=== PATIENT | female | born 1970 | race Two or more races ===

== ENCOUNTER 2016-09-22 20:59 | Emergency (ER) | payer OTHER ==
--- NOTE | 2016-09-22 21:01 | ED Physician Chart ---
Chief Complaint/HPI - Patient Information Date Seen:: 09/22/16 Time Seen:: 21:00 Chief Complaint:: anxiety History of Present Illness:: 4-year-old female complains of acute, severe, constant, anxiety that started about 30 minutes prior to arrival to the ER. Has associated left arm numbness. Denies chest pain, Palpitations, nausea, vomiting, diaphoresis, headache, acute visual changes, abdominal pain. Reports that she had an emotional upset and started the symptoms. Historian:: Patient Review:: Nurse's Note Reviewed Review of Systems - Review of Systems Other: Complete system review otherwise unremarkable except as noted in history of present illness. Past Medical History - Past Medical History Past Medical History: No significant medical hx Family History: None Social History: Non Smoker, No Alcohol, No Drug Use, Employed Surgical History: None Psychiatricy History: None Medication: None Family Medical History - Family Member Mother Ethnicity: Hx Family Cancer: No Hx Family Coronary Artery Disease: No Hx Family Congestive Heart Failure: No Hx Family Hypertension: No Hx Family Stroke: No Hx Family Diabetes: No Labs/Radiology/EKG Results - Lab Results Results: Lab Results 09/22/16 09/22/16 09/22/16 Range/Units 21:21 21:21 21:21 WBC 8.3 (4.8-10.8) Th/cmm RBC 4.23 (3.80-5.10) Mil/cmm Hgb 12.8 (11.7-15.5) gm/dL Hct 38.0 (35.0-45.0) % MCV 89.9 (81-100) fl MCH 30.2 (27.0-31.0) pg MCHC Differential 33.6 (28.0-36.0) pg RDW 12.1 (11.5-20.0) % Plt Count 303 (150-400) Th/cmm MPV 7.2 fl PT 9.7 (9.5-11.5) SECONDS INR 0.93 (0.5-1.4) Sodium (136-145) mEq/L Potassium (3.5-5.1) mEq/L Chloride (98-107) mEq/L Carbon Dioxide (21.0-31.0) mEq/L Anion Gap (7.0-16.0) BUN (7-25) mg/dL Creatinine (0.6-1.2) mg/dL Est GFR ( Amer) (>90) ml/min Est GFR (Non-Af Amer) ml/min BUN/Creatinine Ratio Glucose (70-105) mg/dL Calcium (8.6-10.3) mg/dL Total Bilirubin (0.3-1.0) mg/dL AST (13-39) U/L ALT (7-52) U/L Alkaline Phosphatase (34-104) U/L Creatine Kinase 79 (30-223) U/L Troponin I (0.01-0.05) ng/mL Total Protein (6.0-8.3) gm/dL Albumin (3.7-5.3) gm/dL Globulin gm/dL Albumin/Globulin Ratio (1.0-1.8) 09/22/16 09/22/16 Range/Units 21:21 21:21 WBC (4.8-10.8) Th/cmm RBC (3.80-5.10) Mil/cmm Hgb (11.7-15.5) gm/dL Hct (35.0-45.0) % MCV (81-100) fl MCH (27.0-31.0) pg MCHC Differential (28.0-36.0) pg RDW (11.5-20.0) % Plt Count (150-400) Th/cmm MPV fl PT (9.5-11.5) SECONDS INR (0.5-1.4) Sodium 140 (136-145) mEq/L Potassium 3.4 L (3.5-5.1) mEq/L Chloride 102 (98-107) mEq/L Carbon Dioxide 26.6 (21.0-31.0) mEq/L Anion Gap 14.8 (7.0-16.0) BUN 16 (7-25) mg/dL Creatinine 0.6 (0.6-1.2) mg/dL Est GFR ( Amer) > 60.0 (>90) ml/min Est GFR (Non-Af Amer) > 60.0 ml/min BUN/Creatinine Ratio 26.7 Glucose 108 H (70-105) mg/dL Calcium 9.3 (8.6-10.3) mg/dL Total Bilirubin 0.4 (0.3-1.0) mg/dL AST 21 (13-39) U/L ALT 22 (7-52) U/L Alkaline Phosphatase 42 (34-104) U/L Creatine Kinase (30-223) U/L Troponin I 0.01 (0.01-0.05) ng/mL Total Protein 7.7 (6.0-8.3) gm/dL Albumin 4.6 (3.7-5.3) gm/dL Globulin 3.1 gm/dL Albumin/Globulin Ratio 1.5 (1.0-1.8) - EKG Interpretations Comments:: 12-lead EKG Interpretation by Jasper Maria MD: Normal Sinus Rhythm with ventricular rate of 96 beats per minute Normal axis Normal intervals No acute ST or T wave changes. No obvious STEMI ED Septic Shock - . Is Septic Shock (SBP<90, OR Lactate>4 mmol\L) present?: No Reassessment (Disposition) - Reassessment Reassessment:: Labs are essentially unremarkable. Patient had a normal EKG as well. Troponin is negative. Patient presented to the ER with acute anxiety after emotional upset. Had some associated left arm numbness. We gave intramuscular Ativan which totally resolved his symptoms. Recommend follow up PCP 1-2 days. Return to ER precautions given. Patient says she understands and agrees with plan. Blood pressure was noted to be elevated over 120/80. There were no signs of hypertension. Discussed the findings with the patient and recommended that the patient follow up with the primary care physician regarding the elevated blood pressure. - Diagnosis Diagnosis:: Acute anxiety Elevated blood pressure without diagnosis of hypertension - Aftercare/Follow up Instructions Aftercare/Follow-Up Instructions:: Counseled pt regarding lab results/diagnosis & need follow up, Refer to Discharge Instructions - Patient Disposition Discharge/Transfer:: Home Time:: 21:52 Condition at Disposition:: Improved ED Discharge Plan - Patient Disposition Admit/Discharge/Transfer: PT DISCHARGED HOME Condition at Disposition: Improved Instructions: Anxiety and Panic Attacks, [id number]
[2016-09-22 21:29] LABS: HEMOGLOBIN 12.8 gm/dL (11.7-15.5); MEAN CELL VOLUME 89.9 fl (81-100); MEAN CORPUSCULAR HEMOGLOBIN 30.2 pg (27.0-31.0); MEAN CORPUSCULAR HGB CONC 33.6 pg (28.0-36.0); MEAN PLATELET VOLUME 7.2 fl; PLATELET COUNT 303 Th/cmm (150-400); RED BLOOD COUNT 4.23 Mil/cmm (3.80-5.10); RED CELL DISTRIBUTION WIDTH 12.1 % (11.5-20.0); WHITE BLOOD COUNT 8.3 Th/cmm (4.8-10.8)
[2016-09-22 21:42] LABS: INR 0.93 (0.5-1.4); PROTHROMBIN TIME (TEST) 9.7 SECONDS (9.5-11.5)
[2016-09-22 21:46] LABS: ALB/GLOB RATIO 1.5 (1.0-1.8); ALKALINE PHOSPHATASE 42 U/L (34-104); ANION GAP 14.8 (7.0-16.0); BILIRUBIN,TOTAL 0.4 mg/dL (0.3-1.0); BUN - UREA NITROGEN 16 mg/dL (7-25); BUN/CREATININE RATIO 26.7; CALCIUM SERUM 9.3 mg/dL (8.6-10.3); CARBON DIOXIDE 26.6 mEq/L (21.0-31.0); CHLORIDE 102 mEq/L (98-107); CREATININE - SERUM 0.6 mg/dL (0.6-1.2); GLUCOSE 108 mg/dL (70-105); POTASSIUM SERUM 3.4 mEq/L (3.5-5.1); SGOT 21 U/L (13-39); SGPT/ALT 22 U/L (7-52); SODIUM SERUM 140 mEq/L (136-145)
[2016-09-22 21:55] LABS: BASOPHIL 4 % (0-3); EOSINOPHIL 3 % (0-5); NEUTROPHILS 37 % (40-80); PLATELET ESTIMATE ADEQUATE (NORMAL); PLATELET MORPHOLOGY NORMAL (NORMAL); TOTAL CELLS COUNTED 100
== END 2016-09-22 22:55 | disposition home or self-care (01) ==
LOC: ER 20:59 → EDBD 20:59 → ER 22:55
DX: F41.9 Anxiety disorder, unspecified (principal); R03.0 Elevated blood-pressure reading, without diagnosis of hypertension
CPT/HCPCS: 99285; 96372; 93005; 84484; 36415; 85007; 85027; 85610; 82550; 80053; J2060

== ENCOUNTER 2019-01-01 08:27 | Emergency (ER) | payer OTHER ==
--- NOTE | 2019-01-01 09:09 | ED Physician Chart ---
ED Chief Complaint/HPI - Patient Information Date Seen:: 01/01/19 Time Seen:: 08:55 Chief Complaint:: abdominal pain History of Present Illness:: Patient's had epigastric pain for 2 days. She vomited once and had one-time diarrhea upon arrival in the emergency department. Patient has 2 children. Allergies:: Allergies Allergy/AdvReac Type Severity Reaction Status Date / Time No Known Allergies Allergy Verified 09/22/16 21:47 Vitals:: Vital Signs - 8 hr 01/01/19 08:44 Temp 97.5 F HR 63 RR 16 BP 118/58 O2 Sat % 100 Historian:: Patient, Family Member Review:: Nurse's Note Reviewed ED Review of Systems - Review of Systems General/Constitutional: No fever Skin: No skin lesions Head: No headache Eyes: No loss of vision ENT: No earache Neck: No neck pain Cardio Vascular: No chest pain, No palpitations Pulmonary: No SOB GI: Vomiting, Diarrhea, Pain G/U: No dysuria Musculoskeletal: No bone or joint pain Endocrine: No polyuria Psychiatric: No prior psych history Hematopoietic: No bruising Allergic/Immuno: No urticaria Neurological: No syncope, No focal symptoms ED Past Medical History - Past Medical History Past Medical History: No significant medical hx Family History: Diabetes Melitus, HTN Social History: Non Smoker, No Alcohol Surgical History: None Psychiatricy History: None Medication: Reviewed Family Medical History - Family Member Mother Ethnicity: Hx Family Cancer: No Hx Family Coronary Artery Disease: No Hx Family Congestive Heart Failure: No Hx Family Hypertension: No Hx Family Stroke: No Hx Family Diabetes: No ED Physical Exam - Physical Examination General/Constitutional: Well-developed, well-nourished, Alert, No distress Head: Atraumatic Eyes: Lids, conjuctiva normal Skin: Nl inspection, No rash, No skin lesions, No ecchymosis ENMT: External ears, nose nl, TM canals nl Neck: No nuchal rigidity Respiratory: Nl effort/Exclusion Cardio Vascular: RRR GI: No organomegaly, No hernia, Normal BS's, Nondistended, No mass/bruits, No McBurney tenderness Other GI comments:: Epigastric tenderness and milder right upper quadrant tenderness : No CVA tenderness Extremities: Normal digits & nails Neuro/Psych: No focal deficits ED Septic Shock - . Is Septic Shock (SBP<90, OR Lactate>4 mmol\L) present?: No - <6hrs of presentation: Vital Signs: Vital Signs - 8 hr 01/01/19 08:44 Temp 97.5 F HR 63 RR 16 BP 118/58 O2 Sat % 100 ED Reassessment (Disposition) - Reassessment Reassessment Condition:: Unchanged - Diagnosis Diagnosis:: Acute viral syndrome; bronchitis - Aftercare/Follow up Instructions Aftercare/Follow-Up Instructions:: Refer to Discharge Instructions Medication Prescribed:: Z-Chrales - Patient Disposition Discharge/Transfer:: Home Condition at Disposition:: Stable, Unchanged
[2019-01-01] MEDS ORDERED: Sodium Chloride 0.9% 1,000 ML IV ONE (09:11)
[2019-01-01 09:26] LABS: MONOCYTE ABSOLUTE 0.8 Th/cmm (0.3-1.0)
[2019-01-01 09:32] LABS: HEMATOCRIT 40.9 % (41.0-60); HEMOGLOBIN 13.6 gm/dL (12-16); RED BLOOD COUNT 4.56 Mil/cmm (3.80-5.10)
[2019-01-01 09:33] LABS: % EOSINOPHILS 0.9 % (0.0-5.0); % LYMPHOCYTES 9.5 % (20.0-50.0); % MONOCYTES 4.9 % (2.0-10.0); % NEUTROPHILS 84.7 % (40.0-80.0); EOSINOPHILE ABSOLUTE 0.1 Th/cmm (0.1-0.4); LYMPHOCYTE ABSOLUTE 1.5 Th/cmm (1.5-3.0); MEAN CELL VOLUME 89.7 fl (81-100); MEAN CORPUSCULAR HEMOGLOBIN 29.7 pg (27.0-31.0); MEAN CORPUSCULAR HGB CONC 33.1 pg (28.0-36.0); PLATELET COUNT 291 Th/cmm (150-400)
[2019-01-01 09:36] LABS: WHITE BLOOD COUNT 15.4 Th/cmm (4.8-10.8)
[2019-01-01 09:42] LABS: ANION GAP 13.3 (7.0-16.0); BUN - UREA NITROGEN 16 mg/dL (7-25); CALCIUM SERUM 9.2 mg/dL (8.6-10.3); CARBON DIOXIDE 26.5 mEq/L (21.0-31.0); CHLORIDE 105 mEq/L (98-107); CREATININE - SERUM 0.5 mg/dL (0.6-1.2); GFR AFRICAN-AMERICAN > 60.0 ml/min (>90); GFR NON AFRICAN-AMERICAN > 60.0 ml/min; GLUCOSE 191 mg/dL (70-105); LIPASE 16 U/L (11-82); POTASSIUM SERUM 3.8 mEq/L (3.5-5.1); SODIUM SERUM 141 mEq/L (136-145)
[2019-01-01] MEDS ORDERED: Maalox 30 mL Cup PO ONE (10:00)
[2019-01-01] MEDS ORDERED: Dicyclomine 10 mg Cap PO STA (10:00)
[2019-01-01] MEDS ORDERED: Dicyclomine 10 mg Cap ONE (10:05)
[2019-01-01] MEDS ORDERED: Maalox 30 mL Cup ONE (10:05)
--- NOTE | 2019-01-01 10:36 | Diagnostic Imaging Report ---
Ultrasound abdomen HISTORY: Epigastric pain COMPARISON: None Technique: Sonography of the abdomen was performed in multiple planes. FINDINGS: Exam is limited due to bowel gas. The liver demonstrates increased echogenicity with no evidence of focal lesions. The liver measures 14.6 cm. Mildly distended gallbladder is noted. No evidence of gallstones or gallbladder wall thickening. The common bile duct measures 2 mm. The visualized IVC measures 2.4 cm. Evaluation of the pancreas is limited due to bowel gas. The right kidney measures 13.8 x 5 cm. No evidence of focal lesions or hydronephrosis. The left kidney measures 10.7 x 4.4 cm. No evidence of focal lesions or hydronephrosis. The spleen measures 10.8 cm. IMPRESSION: Mildly distended gallbladder. No gallstones or evidence of gallbladder wall thickening. Please correlate clinically. Mild increased echogenicity of the liver which may be due to underlying fatty infiltration. Mildly increased right kidney size, nonspecific.
[2019-01-01 11:11] LABS: MAGNESIUM 1.9 mg/dL (1.9-2.7)
[2019-01-02 06:07] LABS: A1C 6.1 % (4.8-5.6)
== END 2019-01-01 10:50 | disposition home or self-care (01) ==
LOC: ER 08:27
DX: J40 Bronchitis, not specified as acute or chronic (principal); B34.9 Viral infection, unspecified
CPT/HCPCS: 99284; 96374; 76700; 36415; 85025; 83036; 81025; 83690; 83735; 80048; C9113; J7030